=== PATIENT | male | born 1990 | race Caucasian/White ===

== ENCOUNTER 2017-07-21 07:40 | Emergency (ER) | payer SELFPAY ==
[~2017-07-21] VITALS: Ht 193 cm; Wt 61.2 kg
[~2017-07-21 07:40] MED LIST: AUGMENTIN 875-1 EACH PO; EXCEDRIN EXTRA1 EAC1 PO; NORCO 5-325 TA1 EACH PO; PROTONIX40 MG PO; ZOFRAN ODT4 MG SL
[2017-07-21] MEDS ORDERED: KETOROLAC TROME10 MG PO (09:06)
[2017-07-21] MEDS ORDERED: DOXYCYCLINE HY100 MG PO (09:06)
== END 2017-07-21 09:33 | disposition home or self-care (01) ==
LOC: ED 07:40
DX: N45.3 Epididymo-orchitis (principal); Z87.891 Personal history of nicotine dependence; Z88.8 Allergy status to other drugs, medicaments and biological substances; Z98.890 Other specified postprocedural states
CPT/HCPCS: 76870; 80053; 81001; 85025; 96361; 96372; 96374; 96375; 99284; J0696; J1170; J1885; J2405; J7030

== ENCOUNTER 2019-10-04 08:55 | Emergency (ER) | payer SELFPAY ==
[~2019-10-04] VITALS: Ht 193 cm; Wt 61.2 kg
--- OUTSIDE RECORDS SUMMARY | ~2019-10-04 | XMS | Clinical Summary ---
Demographics + + + | Address | [address] | | | [place] [address] | + + + | Home Phone | | + + + | Preferred Language | Unknown | + + + | Marital Status | Single | + + + | Catholic Affiliation | Unknown | + + + | Race | Unknown | + + + | Ethnic Group | Unknown | + + + Author + + + | Author | [facility] | | | and [place] | + + + | Organization | [facility] | | | and [place] | + + + | Address | Unknown | + + + | Phone | Unavailable | + + + Support + + + + + | Name | Relationship | Address | Phone | + + + + + | Cruz Baker | ECON | [place] | | | | | [address] | | + + + + + Care Team Providers + +------+ + | Care Boat Mechanic Name | Role | Phone | + +------+ + | Genevieve Enamorado NP | PCP | | + +------+ + Allergies + + + + + + | Active Allergy | Reactions | Severity | Noted | Comments | | | | | Date | | + + + + + + | Metoclopramide | Other (See Comments) | | 10/13/20 | Muscle spasms | | | | | 16 | (reglan) | + + + + + + Medications No known medications Active Problems + + + | Problem | Noted Date | + + + | Chronic abdominal pain | 10/20/2016 | + + + | Unintentional weight loss | 10/20/2016 | + + + | Nausea and vomiting, intractability of vomiting not specified, | 10/20/2016 | | unspecified vomiting type | | + + + | Delayed gastric emptying | 10/20/2016 | + + + Family History Patient is adopted + +------+--------+ + | Relation | Name | Status | Comments | + +------+--------+ + | Father | | Other | adopted | + +------+--------+ + | Mother | | Other | adopted | + +------+--------+ + Social History + + + +--------+------+ | Tobacco Use | Types | Packs/Day | Years | Date | | | | | Used | | + + + +--------+------+ | Current Every Day | Cigarettes | 0.25 | 6 | | | Smoker | | | | | + + + +--------+------+ + + | Tobacco Cessation: Counseling Given: Yes | + + + + +---------+ + | Alcohol Use | Drinks/We | oz/Week | Comments | | | ek | | | + + +---------+ + | Yes | 1 Cans | 0.6 | | | | of beer | | | + + +---------+ + + + + | Sex Assigned at | Date Recorded | | | | + + + | Not on file | | + + + + + + + | Job Start Date | Occupation | Industry | + + + + | Not on file | Not on file | Not on file | + + + + + + + + | Travel History | Travel Start | Travel End | + + + + + + | No recent travel history available. | + + Last Filed Vital Signs + + + + | Vital Sign | Reading | Time Taken | + + + + | Blood Pressure | 122/52 | 12/29/2016 0939 PST | + + + + | Pulse | 59 | 12/29/2016938 PST | + + + + | Temperature | 36.8 C (98.2 F) | 12/29/2016938 PST | + + + + | Respiratory Rate | 16 | 12/29/2016938 PST | + + + + | Oxygen Saturation | 99% | 12/29/2016938 PST | + + + + | Inhaled Oxygen | - | - | | Concentration | | | + + + + | Weight | 61.7 kg (136 lb) | 12/29/2016938 PST | + + + + | Height | 193 cm (6' 4") | 10/27/20162 PST | + + + + | Body Mass Index | 16.55 | 10/27/20161051 PST | + + + + Plan of Treatment + + + + + | Health Maintenance | Due Date | Last Done | Comments | + + + + + | Vaccine: | | | | | Dtap/Tdap/Td (1 - | 0 | | | | Tdap) | | | | + + + + + | Vaccine: Influenza | | | | | (#1) | 9 | | | + + + + + Results Not on filefrom Last 3 Months Advance Directives Patient has advance care planning documents on file. For more information, please contact:[facility] [place] [address]
--- OUTSIDE RECORDS SUMMARY | ~2019-10-04 | XMS | Clinical Summary ---
Demographics + + + | Address | [address] | | | [place] [address] | + + + | Home Phone | | + + + | Preferred Language | Unknown | + + + | Marital Status | Single | + + + | Episcopal Affiliation | Unknown | + + + | Race | Unknown | + + + | Ethnic Group | Unknown | + + + Author + + + | Author | [facility] | | | and [place] | + + + | Organization | [facility] | | | and [place] | + + + | Address | Unknown | + + + | Phone | Unavailable | + + + Support + + + + + | Name | Relationship | Address | Phone | + + + + + | Cruz Baker | ECON | [place] | | | | | [address] | | + + + + + Care Team Providers + +------+ + | Care Occasional Babysitter Name | Role | Phone | + [...] documents on file. For more information, please contact:[facility] [place] [address]
[~2019-10-04 08:55] MED LIST changes: +DOXYCYCLINE HY100 MG PO; +KETOROLAC TROME10 MG PO
== END 2019-10-04 10:48 | disposition home or self-care (01) ==
LOC: ED 08:55
DX: R07.89 Other chest pain (principal); G43.909 Migraine, unspecified, not intractable, without status migrainosus; F17.200 Nicotine dependence, unspecified, uncomplicated; Z88.8 Allergy status to other drugs, medicaments and biological substances; Z79.899 Other long term (current) drug therapy
CPT/HCPCS: 71045; 96372; 99284-25; 99406; J1885

== ENCOUNTER 2022-09-24 12:42 | Emergency (ER) | payer OTHER ==
[~2022-09-24] VITALS: Ht 193 cm; Wt 61.2 kg
[2022-09-24] MEDS ORDERED: CEPHALEXIN500 M1 PO (16:46)
== END 2022-09-24 16:54 | disposition home or self-care (01) ==
LOC: ED 12:42
DX: R06.4 Hyperventilation (principal); I89.1 Lymphangitis; F17.200 Nicotine dependence, unspecified, uncomplicated; Z88.8 Allergy status to other drugs, medicaments and biological substances; Z79.899 Other long term (current) drug therapy
CPT/HCPCS: 36415; 80053; 83735; 85025; A9270; J2060